=== PATIENT | female | born 1935 | race Caucasian/White ===

== ENCOUNTER 2017-03-10 06:01 | Inpatient (IN) | payer MEDICARE, OTHER ==
[~2017-03-10] VITALS: Ht 172.7 cm; Wt 66.2 kg
[2017-03-10] MEDS ORDERED: FERREX 150150 MG PO (08:53)
[2017-03-10] MEDS ORDERED: ELIQUIS 5 MG TAB5 MG PO (08:56)
[2017-03-10] MEDS ORDERED: PROTONIX 40 MG40 M1 PO (08:57)
[2017-03-10] MEDS ORDERED: LOPRESSOR 25 MG25 MG PO (08:57)
[2017-03-10] MEDS ORDERED: HYDROCHLOROTHIA25 MG PO (08:58)
[2017-03-10] MEDS ORDERED: CLINDAMYCIN HC150 MG PO (09:00)
[2017-03-10 14:53] LABS: HEMOGLOBIN 11.4 gm/dl (12.3-15.3); RED BLOOD COUNT 3.69 M/UL (4.00-5.10); WHITE BLOOD COUNT 6.2 K/UL (4.5-11.0)
[2017-03-10 15:15] LABS: BUN/CREATININE RATIO 21 (0-10)
--- NOTE | 2017-03-10 17:21 | NUR ---
AFTER VERIFICATION FROM PATIENT'S PHARMACY AND FAMILY MEMBER WHO HAS THE OLD PRESCRIBED BOTTLE OF BACTRIM DS AT HOME, PATIENT DEFINETLY ALLERGIC TO BACTRIM DS CAUSING HER TO HAVE RASH AND ITCHING. REPORTED THE ABOVE TO DR. CUNNINGHAM AND RECEIVED ORDER.
[2017-03-11 05:47] LABS: HEMOGLOBIN 10.6 gm/dl (12.3-15.3); RED BLOOD COUNT 3.46 M/UL (4.00-5.10); WHITE BLOOD COUNT 6.1 K/UL (4.5-11.0)
[2017-03-11 06:06] LABS: BUN/CREATININE RATIO 27 (0-10)
[2017-03-11 15:57] LABS: HEMOGLOBIN 8.3 gm/dl (12.3-15.3)
[2017-03-12 04:09] LABS: HEMOGLOBIN 8.1 gm/dl (12.3-15.3)
[2017-03-12 04:11] LABS: RED BLOOD COUNT 2.65 M/UL (4.00-5.10); WHITE BLOOD COUNT 9.3 K/UL (4.5-11.0)
[2017-03-12 04:26] LABS: BUN/CREATININE RATIO 25 (0-10)
[2017-03-13 04:34] LABS: HEMOGLOBIN 7.5 gm/dl (12.3-15.3); RED BLOOD COUNT 2.39 M/UL (4.00-5.10); WHITE BLOOD COUNT 7.1 K/UL (4.5-11.0)
[2017-03-13 05:16] LABS: BUN/CREATININE RATIO 28 (0-10)
[2017-03-13 12:07] LABS: HEMOGLOBIN 7.1 gm/dl (12.3-15.3)
[2017-03-13 18:30] LABS: HEMOGLOBIN 9.3 gm/dl (12.3-15.3)
[2017-03-14 04:01] LABS: HEMOGLOBIN 8.4 gm/dl (12.3-15.3); WHITE BLOOD COUNT 6.3 K/UL (4.5-11.0)
[2017-03-14 04:06] LABS: RED BLOOD COUNT 2.78 M/UL (4.00-5.10)
[2017-03-14 04:22] LABS: BUN/CREATININE RATIO 33 (0-10)
[2017-03-15 04:25] LABS: WHITE BLOOD COUNT 6.7 K/UL (4.5-11.0)
[2017-03-15 04:27] LABS: HEMOGLOBIN 10.6 gm/dl (12.3-15.3); RED BLOOD COUNT 3.57 M/UL (4.00-5.10)
[2017-03-15 04:47] LABS: BUN/CREATININE RATIO 35 (0-10)
[2017-03-15] MEDS ORDERED: LANOXIN TAB 00.25 MG PO (10:30)
[2017-03-15] MEDS ORDERED: COLACE 100MG C100 MG PO (10:31)
[2017-03-15] MEDS ORDERED: NIFEREX 150 MG150 MG PO (10:32)
[2017-03-15] MEDS ORDERED: TYLENOL 325MG325 MG PO (10:33)
[2017-03-15] MEDS ORDERED: DULCOLAX10 MG PR (10:34)
[2017-03-15] MEDS ORDERED: FLEXERIL 10 MG10 MG PO (10:35)
[2017-03-15] MEDS ORDERED: MINERAL OIL HEAV1 ML PO (10:38)
[2017-03-15] MEDS ORDERED: PERCOCET 10-321 EACH PO (10:39)
[2017-03-15] MEDS ORDERED: IPRAT-ALBUT 0.5-3 ML INH (10:41)
--- NOTE | 2017-03-15 16:01 | NUR ---
ATTEMPTED TO CALL FAMILY MEMBER LISTED RELATED TO TRANSFER OF PATIENT, BOTH NUMBERS LISTED ARE NON WORKING NUMBERS.
== END 2017-03-15 14:19 | DRG 481 ==
LOC: M/S 06:58 → PROG CARE 06:58
PROVIDERS: Internal Medicine; Nurse Anesthetist, Certified Registered; Orthopaedic Surgery; ADMIT Internal Medicine
PROC: BW1C1ZZ Fluoroscopy of Lower Extremity using Low Osmolar Contrast (ICD-10-PCS; 2017-03-11)
PROC: 30233N1 Transfusion of Nonautologous Red Blood Cells into Peripheral Vein, Percutaneous Approach (ICD-10-PCS; 2017-03-11)
PROC: 0QS606Z Reposition Right Upper Femur with Intramedullary Internal Fixation Device, Open Approach (ICD-10-PCS; principal; 2017-03-11 11:45)
DX: S72.21XA Displaced subtrochanteric fracture of right femur, initial encounter for closed fracture (principal); D62 Acute posthemorrhagic anemia; I31.3 Pericardial effusion (noninflammatory); Z79.01 Long term (current) use of anticoagulants; I10 Essential (primary) hypertension; K27.9 Peptic ulcer, site unspecified, unspecified as acute or chronic, without hemorrhage or perforation; I48.2 Chronic atrial fibrillation; W01.0XXA Fall on same level from slipping, tripping and stumbling without subsequent striking against object, initial encounter; D50.9 Iron deficiency anemia, unspecified; M19.90 Unspecified osteoarthritis, unspecified site; Z88.2 Allergy status to sulfonamides
CPT/HCPCS: ECHO; 36415; 73502; 73552; 73560; 76000; 80048; 81001; 85014; 85018; 85027; 85610; 85730; 86850; 86900; 86901; 86920; 93005; 93306; 94640; 97110; 97530; 97535; C1713; C1769; J0690; J1160; J2250; J2270; J2370; J2405; J2795; J2920; J3010; J7040; J7050; J7120; P9016; P9045